=== PATIENT | female | born 1970 | race Asian ===

== ENCOUNTER 2019-10-13 08:05 | Emergency (ER) | payer MEDICAID ==
[~2019-10-13] VITALS: Ht 152.4 cm; Wt 54.4 kg
[2019-10-13 08:12] VITALS: BP 138/84
== END 2019-10-13 09:39 | disposition home or self-care (01) ==
LOC: ER 08:05
DX: J06.9 Acute upper respiratory infection, unspecified (principal); J45.909 Unspecified asthma, uncomplicated; R42 Dizziness and giddiness